=== PATIENT | male | born 1955 | race Asian ===

== ENCOUNTER 2025-04-14 05:59 | Day surgery (SDC) | payer MEDICARE, OTHER, SELFPAY ==
[2025-04-14] VITALS (11 sets, daily range): BP systolic 117–160; BP diastolic 66–80; BMI 22.7
[2025-04-14 07:00] LABS: Glucose - Point of Care 107 mg/dl (70-99)
[2025-04-14] MEDS: LOW STRENGTH ASPIRIN 81 MG PO (07:15)
[2025-04-14 09:47] LABS: ACT-LR - POC > 397 Seconds (116-155)
[2025-04-14 09:47] LABS: ACT-LR - POC > 397 Seconds (116-155)
[2025-04-14 09:47] LABS: ACT-LR - POC > 397 Seconds (116-155)
[2025-04-14 09:49] LABS: ACT-LR - POC 393 Seconds (116-155)
--- NOTE | 2025-04-14 10:06 | ITS.CL.ANGIO ---
Top Taper Machine - Angioplasty
Angioplasty
Procedure Report:
CARDIAC CATHETERIZATION REPORT
Date of Procedure: 04/14/2025
Referring: Marianne Quiroz PA-C
INDICATION: Known coronary artery disease, accelerating angina including chest pain at rest.
PROCEDURE:
1. Left heart catheterization.
2. Coronary angiography.
3. Successful PCI of the ostial RPDA.
4. Successful intracoronary lithotripsy of the proximal LAD.
5. Successful IVUS guided PCI of the proximal and mid LAD.
A total of 99 minutes of procedural/moderate sedation was utilized. An independent certified medical assistant was present to assist with and help manage the patient's level of consciousness and physiologic status.
ACCESS:
1. 6 [place]i right radial artery using a modified Seldinger technique.
CATHETERS:
1. 5 Yemeni JR4.
2. 5 Yemeni JL 3.5.
3. 6 Yemeni JR4 guiding catheter.
3. 6 [place]i EBU 3.5 guiding catheter.
HEMODYNAMIC DATA
Weight (kg): 61.7
AO (s/d/x, mmHg): 135/76/99
LV (s/x mmHg): 137/18
LEFT VENTRICULOGRAPHY: Not performed.
CORONARY ANGIOGRAPHY
Dominance: Right.
Left Main: Large size, trifurcating vessel. There is no coronary artery disease.
LAD: Normal size vessel giving rise to several small diagonals. There is a densely calcified 80% lesion in the proximal vessel and an underappreciated 70% lesion in the mid vessel, immediately after the origin of one of the diagonals.
Ramus: Large size vessel which subsequently bifurcates into 2 daughter branches and supplies the entire lateral wall. There is a 40-50% lesion in the ostium of the inferior branch.
Circumflex: Small size, nondominant vessel that traces the atrioventricular groove giving off several small tributaries but no obtuse marginals. There is no coronary artery disease.
RCA: Normal size, dominant vessel with a large RV marginal which supplies the distal inferior septum. A patent stent is visible in the mid RCA. There is an 90% lesion in the ostium of the RPDA which supplies the proximal two thirds of the
inferior interventricular septum.
INTERVENTION(S)
1. Successful PCI of the 90% ostial RPDA lesion (Medtronic [place] 2.0 x 15 ABBIE, postdilated with a 2.0 NC balloon) with reduction in stenosis to 0%, maintaining CAMELIA-3 flow.
2. Successful intracoronary lithotripsy of the densely calcified 80% lesion in the proximal LAD (Shockwave 3.0 x 12 lithotripsy balloon).
3. Successful IVUS guided PCI of the 80% proximal LAD lesion and the underappreciated 70% mid LAD lesion (Medtronic [place] 2.75 x 38 ABBIE, postdilated with a 2.75 NC balloon throughout and a 3.0 NC balloon to high pressure in the proximal and
mid stent) with reduction in stenosis to 0%, maintaining CAMELIA-3 flow.
Narrative:
The decision was made to proceed with percutaneous coronary intervention. The diagnostic catheter was removed over a wire and a 6Fr JR4 guiding catheter was advanced to the aortic root and seated in the right coronary artery. Additional heparin was
given and a Power Turn Flex wire was advanced into the distal RPDA. The 90% ostial RPDA lesion was predilated with a 2.0 x 12 semi-compliant balloon to 12 chilango. The semi-compliant balloon was removed and a Medtronic [place] 2.0 x 15
drug-eluting stent was advanced. The stent was deployed at 12 atmospheres. The stent balloon was removed. A 2.0 x 12 noncompliant balloon was advanced into the stent and the stent was postdilated to 12 atmospheres in its distal margin and 16 chilango in
the proximal margin. Angiography was performed in orthogonal views, confirming good stent expansion and an excellent angiographic result. The coronary wire was withdrawn and the guide was disengaged from the artery.
We then turned our attention to the LAD lesions. The decision was made to proceed with percutaneous coronary intervention. The 6 [place]i JR4 guiding catheter was removed over a wire and a 6Fr EBU 3.5 guiding catheter was advanced to the aortic root
and seated in the left main coronary artery. Additional heparin was given and a Power Turn Flex wire was advanced into the distal LAD.
A Shockwave 3.0 x 12 coronary lithotripsy balloon was advanced over the wire and into the LAD. Unfortunately, the Shockwave balloon would not pass beyond the proximal LAD, confirming the severity of the lesion but also demonstrating the need for
lesion preparation and guide support.
The Shockwave balloon was withdrawn and a 2.5 x 12 noncompliant balloon was advanced with GuideLiner support. Unfortunately, this balloon would not pass beyond the distal aspect of the proximal LAD. This balloon was withdrawn and the original 2.0
x 12 semicompliant balloon was advanced with GuideLiner support. This balloon was able to pass into the mid LAD with relative ease. The proximal mid LAD and entire proximal LAD were predilated with a 2.0 x 12 semi-compliant balloon to 12 chilango. We
used this opportunity to advance GuideLiner support, though the GuideLiner was only able to advance into the midportion of the proximal LAD. Clearly more vessel preparation was needed. The 2.5 x 12 noncompliant balloon was advanced and the
proximal LAD was predilated again and used to advance a guide liner slightly further. With this support in place, the Shockwave balloon was advanced into the proximal LAD lesion with relative ease. The balloon was sterilely connected to the
controller and prepped to negative pressure. Meticulous care was taken while positioning the shockwave balloon. Once in satisfactory position, the balloon was inflated to 4 chilango. After confirming good contact with the vessel wall, 10 pulses were
delivered. After delivering 10 pulses, the balloon was inflated to 6 chilango then deflated. The entire lesion was treated in a similar manner for total of 12 rounds throughout the entire proximal LAD. The Shockwave balloon was withdrawn.
The decision was made to perform intracoronary imaging. An IVUS catheter was advanced through the guiding catheter and into the ostium of the artery. Ring down was performed once the imaging crystal was no longer inside of the guiding catheter. The
IVUS catheter was advanced into the mid LAD, beyond the diseased segment. Intravascular ultrasound was performed in a retrograde fashion using a slow pullback. Intracoronary imaging demonstrated an area of normal vessel in the mid LAD, but also
revealed an underappreciated, 70+% lesion in the mid LAD at the bend of the mid LAD, distal to the takeoff of the first small diagonal. It also demonstrated the severity of the calcification in pLAD. Vessel sizing was also performed.
The IVUS catheter was removed and a Medtronic [place] 2.75 x 38 drug-eluting stent was advanced. Unfortunately, the stent would not pass beyond the mid LAD lesion. The stent was withdrawn and the 2.5 NC balloon was readvanced into the mid
LAD. The entire mid and proximal LAD was predilated again to 16 chilango and the GuideLiner was sheathed over the balloon and into the mid LAD. The stent was readvanced into the mid LAD and the GuideLiner was withdrawn. The stent was pulled back and
angiography was performed, confirming good position, with the stent covering the proximal and mid LAD lesions. The stent was deployed at 12 atmospheres. The stent balloon was removed. A 2.75 x 12 noncompliant balloon was advanced into the stent and
the stent was postdilated to 14 atmospheres in the distal and mid portions. The stent was postdilated to 18 chilango in the proximal portion. The 2.75 x 12 NC balloon was withdrawn and a 3.0 x 15 NC balloon was advanced. The proximal and midportion of
the stent were postdilated to 16 chilango.
IVUS was repeated and demonstrated good stent apposition throughout with some underexpansion in the proximal LAD. The IVUS catheter was withdrawn and the 3.0 x 15 noncompliant balloon was readvanced. The proximal LAD stent was postdilated to 22
chilango. The noncompliant balloon was withdrawn.
Angiography was performed in orthogonal views, confirming good stent expansion and an excellent angiographic result. The coronary wire was withdrawn and the guide was disengaged from the artery. The catheter was removed over a standard J-wire.
Closure Device: Vascular band.
Radiation (mGy): 1133.81
DAP (cm2.Gy): 30.0
Fluoroscopy time (minutes): 30.0
CONCLUSIONS
1. Right dominant circulation with a patent stent in the mid RCA, a 90% lesion in the ostial RPDA (Medtronic [place] 2.0 x 15 ABBIE, postdilated with a 2.0 NC balloon), a 40-50% lesion in the ostium of the inferior branch of the ramus
intermedius, a densely calcified 80% lesion in the proximal LAD and an underappreciated 70% lesion in the mid LAD, status post successful intracoronary lithotripsy of the proximal LAD lesion (shockwave 3.0 x 12 lithotripsy balloon) and IVUS guided
PCI of both lesions (Medtronic [place] 2.75 x 38 ABBIE, postdilated with a 2.75 NC balloon throughout and a 3.0 NC balloon to high pressure in the proximal and mid stent) with reduction in all treated stenoses to 0%, maintaining CAMELIA-3 flow
throughout.
2. Mild to moderately elevated filling pressures (LVEDP = 18 mmHg at 61.7 kg).
RECOMMENDATIONS:
1. Expectant management after cardiac catheterization via right radial approach.
2. Limited weight bearing on the right wrist for one week.
3. Dual antiplatelet therapy with aspirin and clopidogrel for at least 12 months, followed by aspirin indefinitely.
4. Aggressive secondary prevention with high-dose, high potency statin. Goal LDL <55.
5. OMT/GDMT as hemodynamics will tolerate.
6. Referral to cardiac rehab.
Copy to: Marianne Quiroz PA-C, Wang Lewis D.O, Gavino Garcia M.D.
Wood Benton DO, FACC, FACP
[2025-04-14 10:30] LABS: Glucose - Point of Care 139 mg/dl (70-99)
[2025-04-14] MEDS: NORVASC 2.5 MG PO (10:42)
[2025-04-14] MEDS: LYRICA 150 MG PO ×2 (11:05→20:22)
--- NOTE | 2025-04-14 14:53 | CM ---
Chart reviewed. Patient is independent of ADLS, lives with his son and DIL, in a 2 [address], [address] [place], 0 DME. Plan is for the patient to return home. CM to follow
--- NOTE | 2025-04-14 15:28 | PTCARENOTE ---
Tele- SR. HR 70s. Pt has no complaints CP/discomfort at this time. R radial is c/d/i. No bleeding/hematoma noted. Assessment completed as documented. Activity restrictions reviewed w/ pt and verbalizes understanding. Currently in bed; call kwame w/in
reach.
[2025-04-14] MEDS: TYLENOL 650 MG PO (15:33)
[2025-04-14 17:14] LABS: Glucose - Point of Care 161 mg/dl (70-99)
[2025-04-14] MEDS: LIPITOR 40 MG PO (18:05)
[2025-04-14] MEDS: NSS 1000 IV (18:26)
[2025-04-14] MEDS: FOLVITE 1 MG PO (20:23)
[2025-04-14 20:27] LABS: Glucose - Point of Care 209 mg/dl (70-99)
--- NOTE | 2025-04-15 03:04 | PTCARENOTE ---
Assumed care on pt at 1900, aaox3, able to make needs known. Denies c/o cp, dizziness, SOB. SR on the monitor, HR 70's. R radial dsg CDI, no bleeding or hematoma noted.Pt reminded and educated on activity restrictions, verbalizes understanding. Call
puente within reach.
[2025-04-15 03:46] VITALS: BP 144/89
[2025-04-15 04:23] LABS: Hematocrit 34.2 % (39.0-52.0); Hemoglobin 10.8 g/dL (13.0-18.0); Mean Corp Hgb Conc. 31.6 g/dL (33.0-37.0); Mean Corpuscular Volume 72.8 fL (80.0-94.0); Platelet Count 151 10^3/uL (130-400); Red Cell Dist. Width 19.9 % (11.5-14.5)
[2025-04-15 04:49] LABS: Blood Urea Nitrogen 8 mg/dl (9-20); Calcium 8.8 mg/dl (8.4-10.2); Carbon Dioxide 26 mmol/L (22-30); Chloride 110 mmol/L (98-107); Estimated Creatinine Clearance 98 ml/min; Glucose 114 mg/dl (70-99); HDL Cholesterol 38 mg/dl; LDL Cholesterol, Calculated 51 mg/dl; Potassium 3.8 mmol/L (3.5-5.1); Sodium 141 mmol/L (135-145); Very Low Density Lipoprotein 40 mg/dl (0-30); eGFR > 60.00
--- NOTE | 2025-04-15 07:51 | W.PN.CD ---
Today's Communication / Plan
-
Referral to cardiac rehab.
Stable for outpatient follow up.
Discharge.
Impression / Plan
-
Impression/Plan: 69 y/o male with known CAD referred for cardiac catheterization after developing exertional and rest pain with abnormal SPECT, now s/p PCI to oRPDA and pLAD.
#CAD/Unstable angina
-Accelerating.
-S/P PCI to 90% ostial RPDA lesion (Medtronic [place]as [place] 2.0 x 15 ABBIE) with reduction in stenosis to 0%, maintaining CAMELIA III flow.
-S/P IVUS guided intracoronary lithotripsy and PCI to the 70-80% proximal and underappreciated 70% mid LAD lesions (Medtronic [place] 2.75 x 38 ABBIE, post dilated with 2.75 NCB throughout and 3.0 NCB in the mid and proximal stent to high
pressure) with reduction in stenosis to 0%, maintaining CAMELIA III flow.
-DAPT with aspirin and clopidogrel for at least 12 months, followed by aspirin indefinitely.
-Continue OMT/GDMT as hemodynamics will permit (metoprolol, amlodipine).
-High dose, high potency statin. Goal LDL < 55.
-Referral to cardiac rehab.
#HTN
-Chronic, stable.
-Amlodipine 2.5 mg daily, metoprolol 50 mg daily.
#NIDDM
-Chronic, stable
-Resume metformin tomorrow.
-Resume sitagliptin/glipizide.
#HLD
-Chronic, stable.
-Atorvastatin 40 mg daily.
#PPx
-Ambulatory.
-Resume home pantoprazole for GERD.
#Dispo
-IVU status.
-Full code.
-Discharge.
Subjective/Interval History:
PCI of ostial RCA and proximal LAD yesterday.
Feels well.
DATA:
Cardiac Catheterization/PCI, 04/14/2025:
CONCLUSIONS
1. Right dominant circulation with a patent stent in the mid RCA, a 90% lesion in the ostial RPDA (Medtronic [place] 2.0 x 15 ABBIE, postdilated with a 2.0 NC balloon), a 40-50% lesion in the ostium of the inferior branch of the ramus
intermedius, a densely calcified 80% lesion in the proximal LAD and an underappreciated 70% lesion in the mid LAD, status post successful intracoronary lithotripsy of the proximal LAD lesion (shockwave 3.0 x 12 lithotripsy balloon) and IVUS guided
PCI of both lesions (Medtronic [place] 2.75 x 38 ABBIE, postdilated with a 2.75 NC balloon throughout and a 3.0 NC balloon to high pressure in the proximal and mid stent) with reduction in all treated stenoses to 0%, maintaining CAMELIA-3 flow
throughout.
2. Mild to moderately elevated filling pressures (LVEDP = 18 mmHg at 61.7 kg).
Physical Exam
Vital Signs/Labs
Vital Signs
Temp Pulse Resp BP Pulse Ox
36.6 C 88 18 144/89 98
04/14/25 23:05 04/15/25 06:15 04/14/25 23:05 04/15/25 03:46 04/14/25 23:05
04/13/25 04/14/25 04/15/25
11:59 11:59 11:59
Actual Weight 61.8 kg
04/15/25 03:59
04/15/25 03:59
Triglycerides 202 mg/dl (10-149) H 04/15/25 03:59
LDL Cholesterol, Calc 51 mg/dl 04/15/25 03:59
VLDL Cholesterol, Calc 40 mg/dl (0-30) H 04/15/25 03:59
HDL Cholesterol 38 mg/dl 04/15/25 03:59
Physical Exam
Constitutional: No acute distress and Comfortable
EENT: Anicteric and Moist mucous membranes
Cardiovascular: Rhythm & rate is regular, Pedal edema is absent, JVD pressure is normal, S1S2 is normal and Murmur/rub/gallop absent
Respiratory: Respiratory effort normal, Lungs clear to auscul., Wheeze Absent, Crackles Absent and Rhonchi Absent
GI: Soft, Distention absent, Flat, Non tender and Normal bowel sounds
Neuro/Psych: AO x 3
Other: Cath Site (Right radial access site is C/D/I.)
Data Reviewed
-
Date of Service: April 15, 2025
Medical Decision Making: Reviewed Test Results, Independent Historian Assessment and Test Interpretation
EKG: Tracing Personally Visualized and interpreted and Report Reviewed by me
Echo: Report Reviewed by me
X-Ray/CT/US/MRI/NUC/PET: Image Personally Visualized and interpreted and Report Reviewed by me
Medical Tests (PFT, Pathology etc): Image Personally Visualized and interpreted, Report Reviewed by me, Discussed with Patient and Discussed with Family
Labs: Labs Reviewed by me
Old Records: Reviewed
[2025-04-15 07:57] VITALS: BP 128/65
[2025-04-15 08:01] LABS: Glucose - Point of Care 120 mg/dl (70-99)
[2025-04-15] MEDS: PLAVIX 75 MG PO (08:12)
[2025-04-15] MEDS: LYRICA 150 MG PO (08:12)
[2025-04-15] MEDS: ASPIR LOW (ENTERIC COATED) 81 MG PO (08:12)
[2025-04-15] MEDS: GLUCOTROL 5 MG PO (08:12)
[2025-04-15] MEDS: NORVASC 2.5 MG PO (08:13)
[2025-04-15] MEDS: FOLVITE 1 MG PO (08:13)
[2025-04-15] MEDS: JANUVIA 50 MG PO (08:13)
[2025-04-15] MEDS: TOPROL XL 50 MG PO (08:13)
[2025-04-15] MEDS: PROTONIX 40 MG PO (08:13)
[2025-04-15 09:25] LABS: Glycohemoglobin (HgbA1c) 6.9 % (4.0-5.6)
[2025-04-15 11:37] VITALS: BP 148/77
--- NOTE | 2025-04-15 11:38 | W.DS.TRANS ---
DC Summary - Rail Car Mechanic
-
Discharge Instructions:
Discharge Diagnosis/Procedures Angioplasty with stent to RCA x1 and Lithotripsy
/Angioplasty with stent to LAD x1
Diet Low Cholesterol,Diabetic, Carb Controlled
Driving Restrictions No driving for 24 hours
Other Services Cardiac Rehab
Instructions:
Stand-Alone Forms: DC Instructions- Cath/EP Lab
Changes to Home Medications: Yes
Discharge Medications:
DC Medications w/original date entered in [employer] [facility]
aspirin 81 mg tablet,delayed release 81 mg PO DAILY 08/16/12
folic acid 1 mg tablet 1 mg PO BID 08/16/12
albuterol 90 mcg/actuation aerosol inhaler 90 mcg inhalation PRN PRN wheezing 04/14/25
amlodipine 2.5 mg tablet 2.5 mg PO DAILY 04/14/25
ascorbic acid (vitamin C) 500 mg tablet (Vitamin C) 500 mg PO DAILY 04/14/25
atorvastatin 20 mg tablet 40 mg (2 x 20 mg) PO QPM #0 tabs 04/14/25
clopidogrel 75 mg tablet 75 mg PO DAILY #90 tabs 04/14/25
glipizide 5 mg tablet 5 mg PO DAILY 04/14/25
metformin 500 mg tablet 500 mg PO BID 04/14/25
Held on 04/14/25. Instructions: Resume on 04/16/25.
metoprolol succinate 50 mg tablet,extended release 24 hr 50 mg PO DAILY 04/14/25
montelukast 10 mg tablet 10 mg PO DAILY 04/14/25
pantoprazole 40 mg tablet,delayed release 40 mg PO DAILY 04/14/25
prednisone 20 mg tablet 40 mg PO PRN PRN RA 04/14/25
pregabalin 150 mg capsule 150 mg PO BID 04/14/25
sitagliptin phosphate 50 mg tablet 50 mg PO DAILY 04/14/25
tocilizumab 162 mg/0.9 mL subcutaneous syringe (Actemra) 162 mg SC Q30D 04/14/25
Home Medication Changes
resumed plavix
Pending Results: No
--- NOTE | 2025-04-15 13:14 | PTCARENOTE ---
IV and tele removed. Discharge instructions reviewed w/ pt and verbalizes understanding. Belongings collected and sent home w/ pt. D/c to home w/ family member to home.
== END 2025-04-15 13:15 | disposition home or self-care (01) ==
LOC: CATH 05:59
PROVIDERS: Nurse Practitioner Adult Health; ATTENDING PHYSICIAN Internal Medicine Cardiovascular Disease; FAMILY PHYSICIAN Internal Medicine; OTHER PHYSICIAN Internal Medicine Cardiovascular Disease
DX: I25.110 Atherosclerotic heart disease of native coronary artery with unstable angina pectoris (principal); I10 Essential (primary) hypertension; E78.5 Hyperlipidemia, unspecified; E11.9 Type 2 diabetes mellitus without complications; Z79.84 Long term (current) use of oral hypoglycemic drugs; I47.20 Ventricular tachycardia, unspecified; M19.90 Unspecified osteoarthritis, unspecified site; Z79.82 Long term (current) use of aspirin; Z79.899 Other long term (current) drug therapy; Z79.02 Long term (current) use of antithrombotics/antiplatelets; Z79.52 Long term (current) use of systemic steroids
CPT/HCPCS: 92978; 92972; 99152; 99153; C1761; C1753; 80048; 80061; 82962; 83036; 85027; 85347; 93005; 93458; C1725; C1874; C1894; C9600; Q9967